=== PATIENT | female | born 1970 | race Caucasian/White ===

== ENCOUNTER → 2021-02-23 | Outpatient (CLI) | payer OTHER ==
[~2021-02-23] MED LIST: ATIVAN0.5 MG PO; BACLOFEN20 M1 PO; BENADRYL25 MG PO; CIPRO500 MG PO; FLAGYL500 MG PO; FLEXERIL10 MG PO; HYDROCODONE BIT1 T11 PO; KEFLEX500 M1 PO; MEDROL DOSEPAK4 MG PO; NAPROSYN500 MG PO; NEURONTIN600 MG PO; PERCOCET 325 MG1 TA7 PO; PREDNISONE20 MG PO; PROAIR HFA8.5 GM PO; PYRIDIUM200 M1 PO; SOMA350 MG PO; ULTRAM50 MG PO; VOLTAREN GEL1% TP; ZANTAC 150150 MG PO; ZANTAC 300300 MG PO; ZANTAC150 MG PO
== END | disposition home or self-care (01) ==
LOC: US 13:19
PROVIDERS: ATTEND Internal Medicine
DX: R22.42 Localized swelling, mass and lump, left lower limb (principal)

== ENCOUNTER 2024-01-27 06:55 | Emergency (ER) | payer BC, OTHER ==
[~2024-01-27] VITALS: Ht 152.4 cm; Wt 63.0 kg
[2024-01-27] MEDS ORDERED: SODIUM CHLORIDE 0.9% 1,000 ML IV ONE (07:25)
[2024-01-27] MEDS ORDERED: MORPHINE Sulfate 2 MG/ML SYR IV ONE (07:40)
[2024-01-27 07:45] LABS: BASO % 0.3 % (0.0-1.0); EOS # 0.1 10*3/uL (0.0-0.4); EOS % 1.2 % (1.0-4.0); MEAN CELL VOLUME 86.5 fl (81.0-99.0); MEAN CORPUSCULAR HGB 27.7 pg (27.0-31.0); MEAN CORPUSCULAR HGB CONC 32.1 g/dl (33.0-37.0); MEAN PLATELET VOLUME 11.3 fl (9.6-12.3); MONO # 0.5 10*3/uL (0.1-1.0); MONO % 4.8 % (3.0-9.0); NEUT # 6.8 10*3/uL (2.3-7.9); NEUT % 69.5 % (47.0-73.0); PLATELET COUNT AUTOMATED 228 10*3/uL (130-400); RED BLOOD COUNT 5.55 10*6/uL (4.10-5.10); RED CELL DISTRI WIDTH 13.8 % (0-14.5); WHITE BLOOD COUNT 9.8 10*3/uL (4.8-10.8)
[2024-01-27 07:53] LABS: BILIRUBIN 1+ (Negative); BLOOD Trace-Lysed (Negative); CLARITY Cloudy (Clear); COLOR Dark Yellow (Yellow); GLUCOSE Negative (Negative); KETONE Trace (Negative); LEUKO ESTERASE 1+ (Negative); NITRITE Negative (Negative); SPECIFIC GRAVITY 1.025 (1.001-1.030)
[2024-01-27 08:01] LABS: BACTERIA 2+; MUCOUS 3+
[2024-01-27 08:03] LABS: CALCIUM OXALATE CRYSTALS 1+
[2024-01-27] MEDS ORDERED: OZEMPIC2 MG/0.71 SQ (08:06)
[2024-01-27] MEDS ORDERED: BUPRENORPHINE-1 EAC1 SL (08:06)
[2024-01-27 08:07] LABS: ALKALINE PHOSPHATASE 68 U/L (46-116); BUN 10 mg/dl (9-23); CHLORIDE 105 mmol/L (98-107); LIPASE 29 U/L (12-53); POTASSIUM 4.2 mmol/L (3.4-5.1); TOTAL PROTEIN 6.5 gm/dL (6.0-8.0)
[2024-01-27] MEDS ORDERED: LORAZEPAM0.5 M1 PO (08:07)
[2024-01-27] MEDS ORDERED: ATORVASTATIN CA20 M1 PO (08:07)
[2024-01-27] MEDS ORDERED: ESCITALOPRAM OX10 MG PO (08:07)
[2024-01-27 08:08] LABS: SGPT/ALT < 7 U/L (5-49)
[2024-01-27] MEDS ORDERED: methylPREDNISolone sod succ 125 MG VIAL IV ONE (09:50)
[2024-01-27] MEDS ORDERED: AZULFIDINE500 M1 PO (10:08)
[2024-01-27] MEDS ORDERED: PREDNISONE20 M1 PO (10:08)
== END 2024-01-27 10:28 | disposition home or self-care (01) ==
LOC: ED 06:55
DX: K52.9 Noninfective gastroenteritis and colitis, unspecified (principal); R53.83 Other fatigue; K21.9 Gastro-esophageal reflux disease without esophagitis; J45.909 Unspecified asthma, uncomplicated; Z91.041 Radiographic dye allergy status; Z88.1 Allergy status to other antibiotic agents; Z88.8 Allergy status to other drugs, medicaments and biological substances; Z98.890 Other specified postprocedural states